=== PATIENT | female | born 1985 | race Asian ===

== ENCOUNTER 2016-05-14 20:36 | Inpatient (IN) | payer OTHER ==
[~2016-05-14] VITALS: Ht 154.9 cm; Wt 92.5 kg
[2016-05-14 22:09] LABS: ABSOLUTE BASOPHIL COUNT 0.1 /CUMM (0.0-0.2); ABSOLUTE EOSINOPHIL COUNT 0.1 /CUMM (0.0-0.7); ABSOLUTE GRANULOCYTE CT 12.1 /CUMM (1.4-6.5); ABSOLUTE LYMPH COUNT 1.4 /CUMM (1.2-3.4); ABSOLUTE MONOCYTE COUNT 0.9 /CUMM (0.10-0.60); BASOPHIL % 0.4 % (0.0-2.0); EOSINOPHIL % 0.8 % (0-5); HEMATOCRIT 41.7 % (37-47); MEAN CORPUSCULAR HGB 27.5 PG (27.0-31.0); MEAN CORPUSCULAR HGB CONC 32.7 G/DL (33.0-37.0); MEAN CORPUSCULAR VOLUME 83.9 FL (81.0-99.0); MEAN PLATELET VOLUME 7.8 FL (7.4-10.4); PLATELET COUNT 260 /CUMM (130-400); RBC DISTRIBUTION WIDTH 14.1 % (11.5-14.5); RED BLOOD CELL CT 4.97 /CUMM (4.20-5.40); WHITE BLOOD CELL COUNT 14.6 /CUMM (4.8-10.8)
[2016-05-14 22:11] LABS: GRANULOCYTE % 83.3 % (42.2-75.2)
--- NOTE | 2016-05-15 10:28 | PN- Obstetrical ---
Subjective Subjective: I WANT TO PUSH Objective Last 24 Hrs of Vital Signs/I&O PER CHART Physical Exam: SHORT FEMALE ABD SOFT EFW 3800 Obstetric Exam Dilation (cm): 7 Effacement (%): 100 (SWELLING SECONDARY TO PUSHING) Station: 0 Membranes: AROM Fluid: clear Multiple Gestation? No Contractions: Q 1-2 MINUTES Assessment/Plan Assessment/Plan ASSESS TERM LABOR PLAN EPIDURAL
[2016-05-15 16:56] LABS: ABSOLUTE BASOPHIL COUNT 0 /CUMM (0.0-0.2); ABSOLUTE EOSINOPHIL COUNT 0 /CUMM (0.0-0.7); ABSOLUTE GRANULOCYTE CT 14.6 /CUMM (1.4-6.5); ABSOLUTE LYMPH COUNT 0.7 /CUMM (1.2-3.4); ABSOLUTE MONOCYTE COUNT 1.1 /CUMM (0.10-0.60); BASOPHIL % 0.1 % (0.0-2.0); EOSINOPHIL % 0.1 % (0-5); MEAN CORPUSCULAR HGB CONC 33.6 G/DL (33.0-37.0); MEAN CORPUSCULAR VOLUME 83.6 FL (81.0-99.0); MEAN PLATELET VOLUME 7.3 FL (7.4-10.4); PLATELET COUNT 201 /CUMM (130-400); RBC DISTRIBUTION WIDTH 13.9 % (11.5-14.5); RED BLOOD CELL CT 3.67 /CUMM (4.20-5.40); WHITE BLOOD CELL COUNT 16.4 /CUMM (4.8-10.8)
[2016-05-15 16:59] LABS: HEMATOCRIT 30.7 % (37-47)
[2016-05-16 03:14] LABS: ABSOLUTE BASOPHIL COUNT 0 /CUMM (0.0-0.2); ABSOLUTE EOSINOPHIL COUNT 0.2 /CUMM (0.0-0.7); ABSOLUTE GRANULOCYTE CT 16.2 /CUMM (1.4-6.5); ABSOLUTE LYMPH COUNT 1.4 /CUMM (1.2-3.4); BASOPHIL % 0.1 % (0.0-2.0); EOSINOPHIL % 1.2 % (0-5); GRANULOCYTE % 85.6 % (42.2-75.2); HEMATOCRIT 28.1 % (37-47); MEAN CORPUSCULAR HGB CONC 33.3 G/DL (33.0-37.0); MEAN PLATELET VOLUME 7.3 FL (7.4-10.4); PLATELET COUNT 184 /CUMM (130-400); RBC DISTRIBUTION WIDTH 14.7 % (11.5-14.5); RED BLOOD CELL CT 3.23 /CUMM (4.20-5.40); WHITE BLOOD CELL COUNT 18.9 /CUMM (4.8-10.8)
[2016-05-16 05:53] VITALS: BP 108/58
[2016-05-16 08:37] LABS: ABSOLUTE BASOPHIL COUNT 0 /CUMM (0.0-0.2); ABSOLUTE EOSINOPHIL COUNT 0.2 /CUMM (0.0-0.7); ABSOLUTE LYMPH COUNT 1.3 /CUMM (1.2-3.4); ABSOLUTE MONOCYTE COUNT 1.1 /CUMM (0.10-0.60); BASOPHIL % 0.2 % (0.0-2.0); GRANULOCYTE % 84.3 % (42.2-75.2); HEMATOCRIT 24.1 % (37-47); MEAN CORPUSCULAR HGB CONC 33.4 G/DL (33.0-37.0); MEAN CORPUSCULAR VOLUME 86.7 FL (81.0-99.0); MEAN PLATELET VOLUME 7.6 FL (7.4-10.4); PLATELET COUNT 158 /CUMM (130-400); RBC DISTRIBUTION WIDTH 15.1 % (11.5-14.5); RED BLOOD CELL CT 2.78 /CUMM (4.20-5.40); WHITE BLOOD CELL COUNT 16.6 /CUMM (4.8-10.8)
--- NOTE | 2016-05-17 08:32 | PN- Post Delivery/GYN ---
Subjective Subjective: FEELS BETTER HAD FEVER LAST NIGHT Objective Last 24 Hrs of Vital Signs/I&O [id number] NOW Physical Exam: PE PLEASANT FEMALE ABD SOFT NT FUNDUS FIRM NT LOCHIA MINIMAL EXT +2 EDEMA -HOMANS Assessment/Plan Assessment/Plan ASSESS S/P C/S CHORIO PLAN CONT ABX
--- NOTE | 2016-05-17 08:37 | Operative Report ---
Operative/Inv Procedure Report Surgery Date: 05/15/16 Name of Procedure: Primary low flap transverse section via Pfannenstiel skin incision Pre-Operative Diagnosis: Arrest of descent nonreassuring heart tracing Post-Operative Diagnosis: Same same Estimated Blood Loss: 1999 Surgeon/Corrugator Operator Helper: CHANI AGUILAR,MELA Cruz [facility] Anest[facility]: block Operative/Procedure Note Note: Was taken the operating room placed supine position after adequate skin testing for epidural anesthesia on the abdomen was prepped and draped so fashion on the skin was tested once again for anesthesia 2 fingerbreadths of symptoms pubis skin was cut was carried down to rectus fascia which was cut in curvilinear fashion I direction peritoneal cavity was entered high into the abdomen at this point the low blade the Franca was placed and lower in the incision in the lower uterine segment the peritoneum was dissected bluntly as well as sharply to develop a bladder flap the [place] was replaced to be position and protect the bladder at this point the uterus in the lower uterine segment was nicked entered with the back knife once was removed from the field. It was delivered over the abdominal wall the cord was doubly clamped and cut and infant was handed to aircraft log clerk was waiting delivering to aid in resuscitation placenta was delivered manually noted to be intact was wiped clean with 2 wet dry last insurance free of her membranes was oversewn running locking suture was indicated interrupted [id number]'s on at this point I hemostasis was apparent uterus was returned to abdominal cavity the abdomen was irrigated copious amounts warm sounds are clear the peritoneum was reapproximated 0 the fascia was reapproximated to continue sutures of #1 on the skin was reapproximated maddy after Bovie coagulation subcutaneous tissue for hemostasis sterile dressings were applied on I at the end the case approximately 1500 mL of blood was noted on and it this point the patient had received Methergine Pitocin and Hemabate intraoperatively and it this point thousand milligrams of Cytotec was inserted rectally hemostasis was apparent patient was transferred recovery room awake alert counts correct thank you
[2016-05-17] MEDS ORDERED: IBUPROFEN800 M1 PO (17:48)
[2016-05-17] MEDS ORDERED: PERCOCET 5-3251 EACH PO (17:48)
--- NOTE | 2016-05-31 14:06 | Surgical Discharge Summary ---
Visit Information Visit Dates Admission Date: 05/14/16 Discharge Date: 05/18/16 History of Present Illness Chief Complaint: Labor Surgical History Pertinent Surgical History: none Psychosocial History What is Your Primary Language? Iranian Review of Systems: -13 point review of systems as stated in the HPI Hospital Course Course Attending Physician: MELA WILDE MD Primary Care Physician: PATIENT HAS NO PRIMARY CARE DR Hospital Course: History presented complaining of contractions she progressed to 7 cm further dilatation R she had adequate contractions were monitored by an [facility] I feel heart tracing was adequate on patient [place] labored 7 cm this 90% despite encouraging patient onto pushpins the cervix as well as an epidural patient dilated no further [place]'s Allergies: Coded Allergies: lactose (Intermediate, ABDOMINAL CRAMPING 05/14/16) Disposition Summary Disposition Principal Diagnosis: Status post section arrestive dilatation Additional Diagnosis: Anemia Discharge Disposition: home or self care Discharge Instructions General Discharge Information Code Status: Full Code Patient's Diet: Regular Patient's Activity: L regress no heavy lifting greater than 15 pounds Follow-Up Instructions/Appts: 2 weeks my office 1 week Visit to Remove Adalid Medications at Discharge Discharge Medications: Start taking the following new medications: Ibuprofen (Ibuprofen) 800 MG TABLET 800 Milligram ORAL EVERY SIX HOURS NEEDED as needed for UTERINE CRAMPING Qty = 60 No Refills Comments: Last Taken:05/18/16 Time:1142 Oxycodone HCl/Acetaminophen (Percocet 5-325 MG Tablet) 5 MG-325 MG TABLET 1 Tablet ORAL EVERY 4 HOURS NEEDED as needed for PAIN SCALE 4-6 (MODERATE ) Qty = 30 No Refills Comments: Last Taken:05/18/2016 Time:0600
== END 2016-05-18 13:45 | DRG 766 ==
LOC: CBCO 20:36 → GNO 21:01
PROVIDERS: ADMIT Specialist
PROC: 10D00Z1 Extraction of Products of Conception, Low, Open Approach (ICD-10-PCS; principal; 2016-05-15)
DX: O62.1 Secondary uterine inertia (principal); O76 Abnormality in fetal heart rate and rhythm complicating labor and delivery; Z3A.39 39 weeks gestation of pregnancy; Z37.0 Single live birth
CPT/HCPCS: GNOP; GNOS; 36415; 81001; 86920; 87040; 87086; 88307; J0131; J0690; J1650; J1885; J2210; J7120; P9016